=== PATIENT | female | born 1965 | race Two or more races ===

== ENCOUNTER 2016-08-31 16:37 | Inpatient (IN) | payer BC ==
[~2016-08-31] VITALS: Ht 162.6 cm; Wt 70.3 kg
--- NOTE | 2016-08-31 16:56 | NUR ---
PRESENTS SELF TO ED DT DIFFUSED ABDOMINAL PAIN, CRAMPING, NON RADIATING X 4 DAYS. DENIES NAUSEA AND VOMTTING. ABDOMEN NON TENDERED. SKIN IS WARM TO TOUCH AND NON DIAPHORETIC. PT IS AFEBRILE. VSS
[2016-08-31] MEDS ORDERED: ACETAMINOPHEN ES 500 MG TABLET ONE (16:57)
[2016-08-31] MEDS ORDERED: MORPHINE SULFATE INJ 4 MG/ML DISP.SYRIN ONE (16:57)
[2016-08-31] MEDS ORDERED: ONDANSETRON HCL/PF 4 MG/2 ML VIAL ONE (16:57)
[2016-08-31] MEDS ORDERED: MORPHINE SULFATE INJ 2 MG/ML DISP.SYRIN IV ONE (17:00)
[2016-08-31] MEDS ORDERED: IV NS 0.9% 1,000 ML BAG IV ONE (17:00)
[2016-08-31] MEDS ORDERED: ONDANSETRON HCL/PF 4 MG/2 ML VIAL IVP ONE (17:00)
[2016-08-31] MEDS ORDERED: ACETAMINOPHEN ES 500 MG TABLET PO ONE (17:00)
[2016-08-31 17:03] LABS: BASOPHILS % (AUTO) 0.2 % (0.0-2.0); EOSINOPHILS # (AUTO) 0.1 /CMM (0.0-0.7); EOSINOPHILS % (AUTO) 0.7 % (0.0-6.0); HEMATOCRIT 41 % (33-45); HEMOGLOBIN 13.7 g/dL (11.5-14.8); LYMPHOCYTES # (AUTO) 1.3 /CMM (0.8-4.8); LYMPHOCYTES % (AUTO) 7.6 % (20.0-44.0); MEAN CORPUSCULAR HEMOGLOBIN 30 PG (26.0-33.0); MEAN CORPUSCULAR HGB CONC 34 g/dl (31.0-36.0); MEAN CORPUSCULAR VOLUME 88 fL (82-100); MONOCYTES # (AUTO) 0.6 /CMM (0.1-1.30); MONOCYTES % (AUTO) 3.4 % (2.0-12.0); NEUTROPHILS % (AUTO) 88.1 % (43.0-81.0); PLATELET COUNT (AUTO) 349 /CMM (150-450); RDW COEFFICIENT OF VARIATION 12.5 (11.5-15.0); RED BLOOD CELL COUNT(AUTO) 4.67 MIL/uL (4.0-5.2)
[2016-08-31] MEDS ORDERED: IV NS 0.9% 1,000 ML ONE ×2 (17:05→22:00)
[2016-08-31 17:14] LABS: CALCIUM, SERUM 8.9 mg/dL (8.5-10.1); CREATININE 0.8 mg/dL (0.6-1.3); POTASSIUM 3.5 mmol/L (3.5-5.1)
[2016-08-31 17:26] LABS: ALBUMIN 3.6 g/dL (3.4-5.0); BILIRUBIN,DIRECT 0.1 mg/dL (0.0-0.2); BILIRUBIN,TOTAL 0.5 mg/dL (0.2-1.0); TOTAL PROTEIN, SERUM 7.6 g/dL (6.4-8.2)
[2016-08-31 18:15] LABS: APPEARANCE,URINE Clear (CLEAR); BILIRUBIN,URINE Negative (NEGATIVE); BLOOD, URINE Small Ery/uL (NEGATIVE); COLOR,URINE Yellow (YELLOW); KETONES,URINE 40 (NEGATIVE); LEUKOCYTE ESTERASE ,URINE Negative (NEGATIVE); NITRITE, URINE Negative (NEGATIVE); PH,URINE 5.5 (5.0-8.0); PROTEIN,URINE Negative (NEGATIVE); UGLUCOSE Negative (NEGATIVE); UROBILINOGEN,URINE 0.2 EU/dL (0.2)
--- NOTE | 2016-08-31 18:23 | NUR ---
CALLED NURSING SUP. FOR MS BED
[2016-08-31] MEDS ORDERED: IV SET PRIMARY PUMP SET 1 EA INFUS.SET MC ONE ×2 (18:28→22:00)
[2016-08-31] MEDS ORDERED: CIPROFLOXACIN IV RTU 200 ML IV ONE (18:28)
[2016-08-31] MEDS ORDERED: METRONIDAZOLE 500MG/ NS 100ML 100 ML IV ONE (18:28)
[2016-08-31] MEDS ORDERED: FLAGYL/NS RTU 500 MG/100 ML PIGGYBACK IV ONE (18:30)
[2016-08-31 18:31] LABS: BACTERIA,URINE Rare /HPF (None Seen); SQUAMOUS EPITHELIAL CELL,UR Moderate /HPF (None Seen); WBC,URINE 0-2 /HPF (0-3)
[2016-08-31 18:32] LABS: MUCUS,URINE Few /LPF (None Seen)
--- NOTE | 2016-08-31 18:33 | NUR ---
GIOVANNA PAGED, STACIE MOYA DIRECTOR OF [employer]ITY [employer]
[2016-08-31] MEDS: CIPROFLOXACIN IV RTU 400 MG in PREMIX 1 EA IV SCH (18:42)
--- NOTE | 2016-08-31 18:43 | NUR ---
Patient is resting comfortably in bed with eyes closed. Easily aroused. VSS
--- NOTE | 2016-08-31 19:04 | NUR ---
RECEIVED REPORT FROM FRANK HAMPTON FOR CONTINUE OF CARE.
--- NOTE | 2016-08-31 19:07 | NUR ---
DR. CHARLTON AT BEDSIDE SPEAKING FAMILY REGARDING POC/ RESULTS.
--- NOTE | 2016-08-31 19:20 | NUR ---
DR. STACIE MOYA AT BEDSIDE SPEAKIN TO PT.
[2016-08-31] MEDS ORDERED: ACETAMINOPHEN 325 MG TABLET ONE (19:24)
[2016-08-31] MEDS ORDERED: ACETAMINOPHEN 650 MG/20.3 ML UDC PO ONE (19:30)
[2016-08-31] MEDS ORDERED: ACETAMINOPHEN 325 MG TABLET PO ONE (19:30)
--- NOTE | 2016-08-31 19:32 | NUR ---
PT ASSIGNED TO
--- NOTE | 2016-08-31 19:35 | NUR ---
REPORT GIVEN TO FRANK BURNS FOR C.O.C
--- NOTE | 2016-08-31 19:48 | NUR ---
PT TRANSFERED VIA [facility] TO [facility].
[2016-08-31 20:00] VITALS: BP 98/55
--- NOTE | 2016-08-31 20:00 | NUR ---
MS RN NOTES NEW ADMITTED PATIENT. ALERT AND ORIENTED. VERBALLY RESPONSIVE TO STIMULI. COMPLAINT OF MILD PAIN ON HER ABDOMEN. ON ROOM AIR. NO S/S OF SOB. AMBULATORY. SKIN AND BODY ASSESSMENT DONE. SKIN INTACT AND CLEAR. LEFT AC IV ACCESS NOTED, INTACT AND PATENT. NURSING CARE RENDERED. ATTENDED NEEDS PROMPTLY. WILL CONTINUE TO MONITOR.
--- NOTE | 2016-08-31 20:13 | NUR ---
MS RN NOTES CALLED AND PAGED ROLLER STAINER REGARDING PATIENT ADMISSION/ PAIN MANAGEMENT. DR. ACEVEDO CALLED BACK AND MADE AWARE THAT PT NEEDS ADMITTING/PAIN MANAGEMENT ORDER. DR. ACEVEDO ASKED "WHO IS THE ADMITTING DOCTOR AND WHY I PAGED HIM FOR THAT. NURSE MADE HIM AWARE THAT THE ADMITTING DOCTOR IS STACIE MOYA NP AND THAT THERE'S NO ORDER MADE YET. AWAITING FOR THE ADMITTING ORDERS.
[2016-08-31 21:33] VITALS: BP 98/55
--- NOTE | 2016-08-31 21:53 | NUR ---
MS RN NOTES CALLED AGAIN FOR ADMITTING ORDERS. THE EXCHANGE PERSONNEL STATED THAT SHE WILL INFORM/ TEXT STACIE RODRIGUEZCY FOR THE ORDERS.
[2016-08-31] MEDS ORDERED: ZOLPIDEM TARTRATE 5 MG TABLET PO PRN (22:00)
[2016-08-31] MEDS ORDERED: MORPHINE SULFATE INJ 2 MG/ML DISP.SYRIN IV PRN (22:00)
[2016-08-31] MEDS ORDERED: Z GUARD REMEDY 2 OZ OINT TP PRN (22:00)
[2016-08-31] MEDS ORDERED: ONDANSETRON HCL/PF 4 MG/2 ML VIAL IVP PRN (22:00)
[2016-08-31] MEDS: IV NS 0.9% 1,000 ML IV PRN (22:12)
[2016-09-01] MEDS ORDERED: ACETAMINOPHEN 325 MG TABLET ONE (03:56)
[2016-09-01] MEDS: ACETAMINOPHEN 325 MG TABLET PO PRN ×3 (04:01→21:07)
[2016-09-01] MEDS ORDERED: IV D5W 50 ML IV ONE (04:51)
[2016-09-01] MEDS ORDERED: CIPROFLOXACIN IV RTU 200 ML IV ONE (04:52)
[2016-09-01] MEDS ORDERED: PIPERACILLIN /TAZOBACTAM 2.25 G VIAL IV ONE (04:53)
[2016-09-01] MEDS ORDERED: PIPERACILLIN /TAZOBACTAM 4.5 G in IV D5W 50 ML IV SCH (05:00)
[2016-09-01] MEDS ORDERED: SECONDARY IV SET 1 EA INFUS.SET MC ONE ×2 (05:10→11:46)
[2016-09-01 06:37] LABS: BASOPHILS % (AUTO) 0.2 % (0.0-2.0); EOSINOPHILS # (AUTO) 0.1 /CMM (0.0-0.7); EOSINOPHILS % (AUTO) 0.5 % (0.0-6.0); HEMATOCRIT 36 % (33-45); HEMOGLOBIN 12.2 g/dL (11.5-14.8); LYMPHOCYTES # (AUTO) 1.9 /CMM (0.8-4.8); LYMPHOCYTES % (AUTO) 16.4 % (20.0-44.0); MEAN CORPUSCULAR HEMOGLOBIN 30 PG (26.0-33.0); MEAN CORPUSCULAR HGB CONC 34 g/dl (31.0-36.0); MEAN CORPUSCULAR VOLUME 88 fL (82-100); MONOCYTES # (AUTO) 0.9 /CMM (0.1-1.30); MONOCYTES % (AUTO) 7.8 % (2.0-12.0); NEUTROPHILS # (AUTO) 8.5 /CMM (1.8-8.9); NEUTROPHILS % (AUTO) 75.1 % (43.0-81.0); PLATELET COUNT (AUTO) 308 /CMM (150-450); RDW COEFFICIENT OF VARIATION 13.4 (11.5-15.0); RED BLOOD CELL COUNT(AUTO) 4.06 MIL/uL (4.0-5.2); WHITE BLOOD COUNT (AUTO) 11.3 K/uL (4.3-11.0)
[2016-09-01] MEDS: CIPROFLOXACIN IV RTU 400 MG in PREMIX 1 EA IV SCH (06:39)
[2016-09-01 06:55] LABS: ALBUMIN 2.8 g/dL (3.4-5.0); BILIRUBIN,TOTAL 0.4 mg/dL (0.2-1.0); CALCIUM, SERUM 8.1 mg/dL (8.5-10.1); CREATININE 0.6 mg/dL (0.6-1.3); MAGNESIUM 1.9 mg/dL (1.8-2.4); PHOSPHORUS 2.3 mg/dL (2.5-4.9); POTASSIUM 3.4 mmol/L (3.5-5.1); TOTAL PROTEIN, SERUM 6.3 g/dL (6.4-8.2)
[2016-09-01 07:02] LABS: THYROID STIMULATING HORMONE 0.862 uIU/mL (0.358-3.74)
--- NOTE | 2016-09-01 07:18 | NUR ---
MS RN NOTES PT REMAINS STABLE . NO SOB NOTED. AMBULATORY. TOLERATED MILD PAIN WELL. ENDORSE TO THE NEXT SHIFT.
--- NOTE | 2016-09-01 07:30 | NUR ---
MS/RN Patient received Patient received from office services associate. Appears comfortable, in no distress at this time. States that pain scale is 4/10, not requiring medication at this time. Heplock infusing normal saline at 75ml/hr, no signs of infiltration. Will continue to monitor and ensure safety.
[2016-09-01 08:00] VITALS: BP 95/46
--- NOTE | 2016-09-01 08:27 | NUR ---
MS/RN Nausea Patient complaining of nausea, vomiting once (200ml). Zofran administered, will monitor effectiveness.
[2016-09-01 08:36] VITALS: BP 95/47
[2016-09-01] MEDS ORDERED: POTASSIUM CHLORIDE 20 MEQ TAB.PRT.SR PO SCH (09:30)
--- NOTE | 2016-09-01 09:30 | NUR ---
MS/RN Zofran reassessment No further complaints of nausea or episodes of vomiting.
[2016-09-01] MEDS ORDERED: POTASSIUM CHLORIDE 20 MEQ TAB.PRT.SR PO ONE (11:30)
[2016-09-01] MEDS: PIPERACILLIN /TAZOBACTAM 3.375 G in IV D5W 50 ML IV SCH ×3 (11:45→23:44)
--- NOTE | 2016-09-01 11:56 | NUR ---
MS/RN IVAB IVAB hung as ordered.
[2016-09-01] MEDS: IV NS 0.9% 1,000 ML IV PRN (12:28)
[2016-09-01] MEDS: Potassium Phosphate meq 11 MEQ in IV D5W 100 ML IV SCH ×2 (12:28→14:54)
--- NOTE | 2016-09-01 14:00 | NUR ---
MS/RN S/B Dr Bundy Seen by Dr Bundy - to continue with IVF/IVAB.
--- NOTE | 2016-09-01 15:15 | NUR ---
MS/RN New order Order given by Ash Bundy for norco 10/325mg one tablet for headache.
[2016-09-01] MEDS ORDERED: HYDROCODONE/APAP 10/325MG 1 EA TABLET PO PRN (15:30)
--- NOTE | 2016-09-01 15:30 | NUR ---
MS/RN Headache Patient complaining of headache, tylenol 650mg administered, will monitor effect.
[2016-09-01 16:00] VITALS: BP 90/52
--- NOTE | 2016-09-01 16:16 | NUR ---
MS/RN Pain reassess Patient sleeping at this time, medication appears effective.
--- NOTE | 2016-09-01 18:08 | NUR ---
MS/RN End note No changes in plan of care. Stating that pain scale is currently 4/10 and tolerable. IVF infusing as ordered. Will endorse to toolmaker.
--- NOTE | 2016-09-01 19:30 | NUR ---
MS RN NOTES RECEIVED ON BED A/O X4,PRESENT IVF INFUSING WELL ON LFA VIA IV PUMP.WITH MILD PAIN AT THIS TIME 3/10 ON PAIN SCALE,WA JUST MEDICATED WITH TYLENOL 650MG PO BY DAYSHIFT.VISITORS AT BEDSIDE.WILL CONTINUE TO MONITOR STATUS.CALL DURON AT BEDSIDE FOR NEEDS AND ASSISTANCE.
[2016-09-01 20:00] VITALS: BP 99/51
--- NOTE | 2016-09-01 21:07 | NUR ---
MS RN NOTES C/O HEADACHE 3/10 ON PAIN SCALE,MEDICATED WITH TYLENOL 650MG PO ORDERED
--- NOTE | 2016-09-02 | NUR ---
MS RN NOTES DUE GRANT MALDONAOD
--- NOTE | 2016-09-02 02:00 | NUR ---
MS RN NOTES SLEEPING,KEPT WARM AND COMFORTABLE
--- NOTE | 2016-09-02 05:30 | NUR ---
MS RN NOTES DUE GRANT MALDONADO
[2016-09-02] MEDS: PIPERACILLIN /TAZOBACTAM 3.375 G in IV D5W 50 ML IV SCH ×4 (05:36→23:17)
--- NOTE | 2016-09-02 05:58 | NUR ---
MS RN NOTES HEADACHE IMPROVED.IVF INFUSING,SITE REMAINS PATENT.WILL CONTINUE TO MONITOR STATUS.WILL ENDORSE TO DAY NURSE FOR RAUL
[2016-09-02 06:47] LABS: CALCIUM, SERUM 8.1 mg/dL (8.5-10.1); CREATININE 0.6 mg/dL (0.6-1.3); POTASSIUM 3.9 mmol/L (3.5-5.1)
--- NOTE | 2016-09-02 07:26 | NUR ---
MS/RN Patient received Patient received from hub lead. No needs at this time, call light within reach. Will continue to monitor and ensure safety.
[2016-09-02 08:00] VITALS: BP 85/55
[2016-09-02 09:07] VITALS: BP 90/55
[2016-09-02] MEDS ORDERED: ASPIRIN/ACETAMINOPHEN/CAFFEINE 1 EACH TABLET PO PRN (10:00)
--- NOTE | 2016-09-02 10:21 | NUR ---
MS/RN S/B Dr Bundy Seen by Dr Bundy - diet advanced to mechanical soft, needs to remain in hospital for another 24 hours to continue IVAB.
[2016-09-02] MEDS: IV NS 0.9% 1,000 ML IV PRN (12:04)
--- NOTE | 2016-09-02 13:11 | NUR ---
MS/RN Diet Tolerating mechanical soft diet, no nausea or vomiting.
[2016-09-02 16:00] VITALS: BP 97/52
--- NOTE | 2016-09-02 17:27 | NUR ---
MS/RN IVAB IVAB hung as ordered, no signs of infiltration seen around heplock insertion site.
--- NOTE | 2016-09-02 18:04 | NUR ---
MS/RN End note No changes in plan of care at this time. Per patient, feels much better now, headache has gone and abdominal pain much improved. Tolerating mechanical soft diet, no nausea or vomiting. Will endorse to librarian helper.
[2016-09-02 19:43] VITALS: BP 102/62
--- NOTE | 2016-09-02 19:45 | NUR ---
RN NOTES RECEIVED ON BED A/O X4,SMILING,DENIES ABDOMINAL PAIN THIS TIME.IVF INFUSING.VISITORS AT BEDSIDE.CALL DURON AT BEDSIDE,NEEDS ANTICIPATED.
[2016-09-02 20:00] VITALS: BP 102/62
--- NOTE | 2016-09-02 23:56 | NUR ---
MS RN NOTES DUE GRANT MALDONADO
--- NOTE | 2016-09-03 01:15 | NUR ---
MS RN NOTES IV SITE INFILTRATED,NEW SALINE LOCK PLACE ON RFA #22,SAME IVF INFUSING
[2016-09-03] MEDS: ACETAMINOPHEN 325 MG TABLET PO PRN (01:22)
--- NOTE | 2016-09-03 01:22 | NUR ---
MS RN NOTES C/O HEADACHE,MEDICATED WITH TYLENOL 650MG PO FOR MILD PAIN
[2016-09-03] MEDS: IV NS 0.9% 1,000 ML IV PRN (03:39)
[2016-09-03] MEDS: PIPERACILLIN /TAZOBACTAM 3.375 G in IV D5W 50 ML IV SCH ×2 (05:35→11:54)
--- NOTE | 2016-09-03 06:14 | NUR ---
MS RN NOTES FAIRLY RESTED,HEADACHE IMPROVED,IVF INFUSING.POSSIBLE D/C HOME TODAY.ENDORSE TO DAY NURSE FOR RAUL.
[2016-09-03 06:43] LABS: CALCIUM, SERUM 8.8 mg/dL (8.5-10.1); CREATININE 0.6 mg/dL (0.6-1.3); POTASSIUM 3.9 mmol/L (3.5-5.1)
[2016-09-03 08:00] VITALS: BP 90/54
--- NOTE | 2016-09-03 08:00 | NUR ---
MS RN NOTES PATIENT IN BED RESTING NO SOB OR ACUTE DISTRESS NOTED. PERIPHERAL IV INTACT. BED IN LOW LOCKED POSITION. BED IN LOW LOCKED POSITION. WILL CONTINUE TO MONITOR.
[2016-09-03] MEDS ORDERED: LEVO500T15 PO (15:15)
--- NOTE | 2016-09-03 15:30 | NUR ---
MS RN NOTES PATIENT SEEN AND EVALUATED BY DR. STACIE MOYA ORDERS FOR DISCHARGE NOTED AND CARRIED OUT.
[2016-09-03 16:00] VITALS: BP 90/55
--- NOTE | 2016-09-03 16:53 | NUR ---
MS RN NOTES PATIENT DISCHARGED HOME WITH SISTER. MD AWARE OF ALL ABNORMAL LABS. DISCHARGE TEACHING PROVIDED, PATIENT VERBALIZED UNDERSTANDING. PRESCRIPTION PROVIDED TO PATIENT. ALL BELONGINGS ACCOUNTED FOR. BELONGING LIST SIGNED. PERIPHERAL IV REMOVED WITH MINIMAL BLEEDING NOTED. ID BAND REMOVED. ESCORTED BY QUALITY MANAGER TO CAR.
== END 2016-09-03 16:50 | disposition home or self-care (01) | DRG 392 ==
LOC: ER 16:40 → MEDSG2 19:35
PROVIDERS: ADMIT Nurse Practitioner Acute Care; ATTEND Nurse Practitioner Acute Care
DX: K57.32 Diverticulitis of large intestine without perforation or abscess without bleeding (principal); D72.829 Elevated white blood cell count, unspecified; E83.39 Other disorders of phosphorus metabolism; E87.6 Hypokalemia
CPT/HCPCS: 36415; 80048-TC; 80053-TC; 80061-TC; 80076-TC; 81000-TC; 83690-TC; 83735-TC; 84100-TC; 84443-TC; 85025-TC; 87081-TC; A4216; A4606; J0744; J2270; J2405; J2543; J3490; J7030; J7060; Z7610

== ENCOUNTER 2019-02-23 13:28 | Emergency (ER) | payer BC, OTHER ==
[~2019-02-23] VITALS: Ht 162.6 cm; Wt 70.3 kg
[~2019-02-23 13:28] MED LIST: LEVO500T75 PO
[2019-02-23 14:07] VITALS: BP 112/72
[2019-02-23] MEDS ORDERED: ACETAMINOPHEN ES 500 MG TABLET ONE (15:49)
[2019-02-23] MEDS ORDERED: IBUPROFEN 600 MG TABLET PO ONE ×2 (15:50→16:00)
[2019-02-23] MEDS ORDERED: ACETAMINOPHEN 325 MG TABLET PO ONE (16:00)
== END 2019-02-23 17:31 | disposition home or self-care (01) ==
LOC: ER 13:29
DX: M25.511 Pain in right shoulder (principal); Z60.2 Problems related to living alone
CPT/HCPCS: 73030-TC